=== PATIENT | female | born 1980 | race Two or more races ===

== ENCOUNTER 2021-02-12 13:25 | Emergency (ER) | payer BC ==
[~2021-02-12] VITALS: Ht 152.4 cm; Wt 61.8 kg
[2021-02-12] MEDS ORDERED: ONDANSETRON ODT 4 MG TAB.RAPDIS. PO ONE (16:15)
[2021-02-12 16:22] LABS: BILIRUBIN,URINE NEGATIVE (NEG); CLARITY,URINE CLEAR; COLOR,URINE YELLOW; NITRITE,URINE NEGATIVE (NEG); PH,URINE 6.5 (<5.0-8.0); PROTEIN,URINE NEGATIVE (NEG-TRACE); UROBILINOGEN,URINE 0.2 mg/dL (0.2 mg/dL)
[2021-02-12 16:36] LABS: BACTERIA,URINE 0 /HPF (0-FEW); RBC,URINE 0 /HPF (0-2)
--- NOTE | 2021-02-12 18:25 | RAD ---
Exam: Chest one view INDICATION: Shortness of breath TECHNIQUE: Frontal view of the chest Comparisons: None FINDINGS: The cardiomediastinal silhouette and pulmonary vessels are within normal limits. Patchy diffuse airspace disease. No pleural effusion. IMPRESSION: Patchy bilateral airspace disease may relate to pulmonary edema or atypical infectious process. Electronically signed by: Andrea Moreno MD (02/12/2021 6:22 PM) NIKA
[2021-02-12] MEDS ORDERED: AZIT250T6 PO (19:21)
[2021-02-12] MEDS ORDERED: ONDA4TAB12 PO (19:21)
--- NOTE | 2021-02-12 19:22 | PHYS DOC ---
Past Medical History Past Surgical History: No Surgical History Smoking Status: Never Smoker Alcohol Use: None General Adult EDM: Chief Complaint: COUGH HPI: HPI: Patient is a 40 year old female presents to the emergency department chief complaint of cough, body aches, nausea for the past week. Patient denies any chest pains, denies shortness of breath, denies vomiting or diarrhea, denies abdominal pains. Patient is unsure whether or not her cough is productive or not. Patient denies receiving the COVID-19 virus vaccination, patient reports she does not want to receive the vaccination. Patient reports her last menstrual cycle was on 06 January 2021, denies allergies to medications, states she takes no medications at home, does not have a primary care physician. Patient denies loss of taste or loss of smell, denies recent fever or chills. Patient denies any other physical complaints or physical concerns. Review of Systems: Review of Systems: 14 body systems of review of systems have been reviewed. See HPI for pertinent positives and negative responses, otherwise all other systems are negative, nonpertinent or noncontributory. Constitutional: Negative except as outlined in HPI above. Skin: Negative except as outlined in HPI above. Eyes: Negative except as outlined in HPI above. HENT: Negative except as outlined in HPI above. Respiratory: Negative except as outlined in HPI above. Cardiovascular: Negative except as outlined in HPI above. GI: Negative except as outlined in HPI above. : Negative except as outlined in HPI above. Musculoskeletal: Negative except as outlined in HPI above. Integument: Negative except as outlined in HPI above. Neurologic: Negative except as outlined in HPI above. Endocrine: Negative except as outlined in HPI above. Lymphatic: Negative except as outlined in HPI above. Psychiatric: Negative except as outlined in HPI above. Heart Score: C/O Chest Pain: No Risk Factors: Risk Factors: DM, Current or recent (<one month) smoker, HTN, HLP, family history of CAD, obesity. Risk Scores: Score 0 - 3: 2.5% MACE over next 6 weeks - Discharge Home Score 4 - 6: 20.3% MACE over next 6 weeks - Admit for Clinical Observation Score 7 - 10: 72.7% MACE over next 6 weeks - Early Invasive Strategies Current Medications: Current Medications Medications (Trade) Dose Ordered Sig/Kamryn Start Time Stop Time Status Last Admin Dose Admin Ondansetron HCl (Zofran Odt) 4 mg 1X ONCE 02/12/21 16:15 02/12/21 16:16 DC 02/12/21 16:31 4 MG Allergies: Allergies: Allergies Coded Allergies Type Severity Reaction Last Updated Verified No Known Drug Allergies 02/12/21 No Physical Exam: PE: Constitutional: Well developed, well nourished, no acute distress, non-toxic appearance. 40-year-old female in no apparent distress. Patient is [id number], speaks Cook Islander, used Giferent interpretation service, plastic products sales representative [id number] medical interpretation. HENT: Normocephalic, atraumatic. Oropharynx moist, pink, no infectious process appreciated, there is no lymphadenopathy of the head or neck. No drooling, no trismus, patient speaking in normal voice tones. Eyes: Conjunctiva normal, no discharge. Neck: Normal range of motion, no stridor. No meningismus signs, no nuchal rigidity. Cardiovascular: No cyanosis appreciated, distal cap refill less than 2 seconds. Heart sounds S1-S2 to auscultation, PMI to the right. Lungs & Thorax: Patient is in no respiratory distress, no audible adventitious lung sounds appreciated. Normal work of breathing, no adventitious lung sounds appreciated audibly, lung sounds clear to auscultate all lung alvarenga. Abdomen: Nontender, no abnormalities noted. Skin: Warm, dry, no erythema, no rash. Back: No tenderness, no deformities. Extremities: No tenderness, no cyanosis, no clubbing, ROM intact, no edema. Neurologic: Alert and oriented X 3, normal motor function, normal sensory function, no focal deficits noted. Psychologic: Affect normal, judgement normal, mood normal. Current Patient Data: Labs: Laboratory Tests Test 02/12/21 15:40 02/12/21 15:43 02/12/21 15:50 Urine Collection Type Unknown Urine Color Yellow Urine Clarity Clear Urine pH 6.5 (<5.0-8.0) Urine Specific K[place]um 1.010 (1.000-1.030) Urine Protein Negative mg/dL (NEG-TRACE) Urine Glucose (UA) Negative mg/dL (NEG) Urine Ketones (Stick) Negative mg/dL (NEG) Urine Blood Negative (NEG) Urine Nitrite Negative (NEG) Urine Bilirubin Negative (NEG) Urine Urobilinogen Dipstick 0.2 mg/dL (0.2 mg/dL) Urine Leukocyte Esterase Negative (NEG) Urine RBC 0 /HPF (0-2) Urine WBC 1-4 /HPF (0-4) Urine Squamous Epithelial Cells Mod /LPF Urine Bacteria 0 /HPF (0-FEW) POC Urine HCG, Qualitative Hcg negative (Negative) SARS-CoV-2 Antigen (Rapid) Positive (NEGATIVE) *A Vital Signs: Vital Signs Date Time Temp Pulse Resp B/P (MAP) Pulse Ox O2 Delivery O2 Flow Rate FiO2 02/12/21 18:18 56 18 145/88 (107) 99 Room Air 02/12/21 15:35 97.8 97.8 EKG: EKG: [] Radiology/Procedures: Radiology/Procedures: PATIENT: KANA MONK ACCOUNT: [id number] : 1980 LOCATION: ER AGE: 40 SEX: F EXAM STATUS: REG ER ORD. PHYSICIAN: RIK ANTON APRN REASON: Short of breath PROCEDURE: CHEST AP ONLY Exam: Chest one view INDICATION: Shortness of breath TECHNIQUE: Frontal view of the chest Comparisons: None FINDINGS: The cardiomediastinal silhouette and pulmonary vessels are within normal limits. Patchy diffuse airspace disease. No pleural effusion. IMPRESSION: Patchy bilateral airspace disease may relate to pulmonary edema or atypical infectious process. Electronically signed by: Andrea Moreno MD (02/12/2021 6:22 PM) [facility] Course & Med Decision Making: Course & Med Decision Making Pertinent Labs and Imaging studies reviewed. (See chart for details) 40-year-old female, vital signs reviewed, presents to the emergency department complaining of nausea, cough, body aches for the past week. Physical presentation and explanation of events concerning for the COVID-19 virus versus other viral syndrome. Will obtain rapid Covid testing, give sublingual Zofran for nausea, patient is nontoxic in appearance, in no respiratory distress, serum labs not indicated, will order urinalysis assay, urine test. Patient's urine was not infected, the patient is not , the patient's rapid COVID-19 test positive. Will order Decadron medication, start patient on Z-Jarvis to cover for atypical pneumonia, give patient COVID-19 virus instructions for self-isolation, the patient is not hypoxic and had room air sat between 98 and 99%, no time during her ER stay which she in any respiratory distress, patient has remained hemodynamically stable throughout her ER stay, the patient is afebrile. Will prescribe Zofran for ongoing intermittent nausea at home. D ischarge instructions reviewed with Cook Islander dobie man service. Discussed with the patient all findings and diagnostic testing as well as the need to follow-up with their primary care provider for further evaluation and treatment or return to the ED if any new or worsening symptoms. Strict return precautions were also discussed at length, the patient voiced understanding and agreement with the discharge planning. The patient was nontoxic in appearance, in no apparent distress, and hemodynamically stable at the time of disposition. Dragon Disclaimer: Dragon Disclaimer: This electronic medical record was generated, in whole or in part, using a voice recognition dictation system. Departure Departure Impression: Primary Impression: COVID-19 virus infection Additional Impression: Atypical pneumonia Disposition: 01 HOME / SELF CARE / HOMELESS Condition: GOOD Referrals: NO PCP (PCP) Patient Instructions: Pneumonia, Adult Additional Instructions: You were seen today in the emergency department for cough, nausea, general body aches for the past week. Your chest x-ray revealed an atypical pneumonia, this is most likely viral in nature however you are being prescribed a medication called azithromycin, please take as directed. I am also prescribing you sublingual orally dissolving Zofran for nausea, you may use this as you become nauseated up to 3 times a day. Please follow-up with your primary care concetta love this coming week for reevaluation of symptoms. I am attaching COVID-19 virus information to this packet, please review. Thank you for visiting our Emergency Department. It was a pleasure taking care of you today in the emergency department and we appreciate you trusting us with your care. If any additional problems come up don't hesitate to return to visit us. Please follow up with your primary care provider so they can plan additional care if needed and know about the problem that you had. If symptoms worsen come back to the Emergency Department. Any concerning symptoms that start such as chest pain, shortness of air, weakness or numbness on one side of the body, running high fevers or any other concerning symptoms return to the ER. EMERGENCY DEPARTMENT GENERAL DISCHARGE INSTRUCTIONS Thank you for coming to [facility] Emergency Department (ED) today and trusting us with you care. We trust that you had a positive experience in our Emergency Department. If you wish to speak to the department management, you may call the Director at [phone]. YOUR FOLLOW UP INSTRUCTIONS ARE FOLLOWS: 1. Do you have a private Doctor? If you do not have a private doctor, please ask for a resource list of physicians or clinics that may be able to assist you with follow up care. 2. The Emergency Physicain has interpreted your x-rays. The X-Ray specialist will also review them. If there is a change in the findings, you will be notified in 48 hours when at all possible. 3. A lab test or culture has been done, your results will be reviewed and you will be notified if you need a change in treatment. ADDITIONAL INSTRUCTIONS AND INFORMATION: 1. Your care today has been supervised by a physician who is specially trained in emergency care. Many problems require more than one evaluation for a complete diagnosis and treatment. We recommend that you schedule your follow up appointment as recommended to ensure complete treatment of you illness or injury. If you are unable to obtain follow up care and continue to have a problem, or if your condition worsens, we recommend that you return to the ED. 2. We are not able to safely determine your condition over the phone nor are we able to give sound medical advice over the phone. For these safety reasons, if you call for medical advice we will ask you to come to the ED for further evaluation. 3. If you have any questions regarding these discharge instructions please call the ED at [phone]. SAFETY INFORMATION: In the interest of safety, wellness, and injury prevention; we encourage you to wear your sealbelt, if you smoke; quite smoking, and we encourage family to use a protective helmet for bicycling and other sporting events that present an increased risk for head injury. IF YOUR SYMPTOMS WORSEN OR NEW SYMPTOMS DEVELOP, OR YOU HAVE CONCERNS ABOUT YOUR CONDITION; OR IF YOUR CONDITION WORSENS WHILE YOU ARE WAITING FOR YOUR FOLLOW UP APPOINTMENT; EITHER CONTACT YOUR PRIMARY CARE DOCTOR, THE PHYSICIAN WHOSE NAME AND NUMBER YOU WERE GIVEN, OR RETURN TO THE ED IMMEDIATELY. You have been tested for or diagnosed with COVID-19. It is an infection caused b y a new type of coronavirus. COVID-19 will cause cold-like or mild flu symptoms in most. It can cause more severe symptoms like problems breathing in some. There is no treatment for COVID-19. The body will clear the infection over time. Self-care will help to ease discomfort. Steps to Take: Self-Care Rest as needed. Healthy habits may help you feel better. Steps include: Choose healthy foods including fruits and vegetables. Drink water throughout the day. Get plenty of sleep each night. If you smoke, try to quit. It may ease breathing. Avoid alcohol. Keep Others Healthy The virus can spread to others. Droplets are released every time you sneeze or cough. The droplets can get into the mouth, nose, or eyes of people near you and lead to infection. To lower the chances of spreading COVID-19 to others: Stay at home until your doctor has said it is safe to leave. If you tested po sitive this will mean staying isolated until both of the following are true: At least 7 days have passed since the start of illness. You are free of fever for at least 72 hours without the use of medicine. During this time: - Avoid public areas, events, or transportation. Do not return to work or school until your doctor has said it is safe to do so. - Call ahead if you need to go to a medical center. Let them know you may have COVID-19. It will help them guide you where to go. They may also ask you to wear a facemask when you come to the office. - If you call for emergency medical services, let them know you may have COVID- 19. While at home: - Try to avoid close contact with others. Stay about 6 feet away. - If possible, spend most of your time in a separate room from others. - Use a face mask if you will be in close contact with others such as sharing a room or vehicle. - Have someone wipe down common surfaces in the home. Use household commercial real estate associate every day on areas like doorknobs, counters, or sinks. - Cough or sneeze into a tissue. Throw the tissue away right after use. If a tissue is not available, cough or sneeze into your elbow. - Wash your hands often. Wash them after sneezing or coughing. Use soap and water and wash for at least 20 seconds. Alcohol based hand well cleaner can be used if soap and water is not available. - Do not prepare food for others. Avoid sharing personal items like forks, spoons, or toothbrushes. - Avoid close contact with pets while you are sick. There is no evidence of the virus passing to pets. This is a safety step until more is known about this virus. Isolation can be frustrating. Social interaction can help. Keep in touch with friends and family through phone and tech options. You can still interact with others in your home, just keep a safe distance of about 6 feet. Follow-up: Your doctors office will check in with you to see if there are any changes in your health. You may be asked to keep track of symptoms to share with them. They will also let you know when you are clear to be in public again. Problems to Look Out For: Contact your doctor if your recovery is not going as you expect. Get emergency care if you have problems such as: - Trouble breathing - Nonstop chest pain or pressure - Changes in awareness, confusion, or problems waking - Lips or face have bluish color - Worsening of symptoms If you think you have an emergency, call for emergency medical services right away. As taken from [facility] Health Scripts Azithromycin (AZITHROMYCIN TABLET) 250 Mg Tablet 1 PKG PO UD for atypical pneumonia for 5 Days, #6 TAB 0 Refills 2 the first day followed by 1 for days 2-5 Prov: RIK ANTON APRN 02/12/21 Ondansetron (ONDANSETRON ODT) 4 Mg Tab.rapdis 1 TAB PO PRN Q6-8HRS for nausea, #16 TAB 0 Refills Prov: RIK ANTON APRN 02/12/21 RIK ANTON APRN Feb 12, 2021 19:22
[2021-02-12] MEDS ORDERED: DEXAMETHASONE SOD PHOS 20 MG/5 ML VIAL. IV ONE (19:30)
[2021-02-12] MEDS ORDERED: AZITHROMYCIN 250 MG TABLET. PO ONE (19:30)
[2021-02-12 19:48] VITALS: BP 149/97
== END 2021-02-12 20:13 | disposition home or self-care (01) ==
LOC: ER 13:25
DX: U07.1 COVID-19 (principal); J18.9 Pneumonia, unspecified organism
CPT/HCPCS: 71045; 81001; 81025; 87426; 96374; 99285; J1100

== ENCOUNTER 2021-02-15 14:46 | Emergency (ER) | payer BC ==
[~2021-02-15] VITALS: Ht 152.4 cm; Wt 63.0 kg
[~2021-02-15 14:46] MED LIST: AZIT250T6 PO; ONDA4TAB12 PO
[2021-02-15 14:55] VITALS: BP 161/107
--- NOTE | 2021-02-15 15:28 | PHYS DOC ---
Past Medical History Past Surgical History: No Surgical History Smoking Status: Never Smoker Alcohol Use: None General Adult EDM: Chief Complaint: CONSTIPATION HPI: HPI: Patient is a 40 year old female with no significant medical history presenting today complaining of constipation. Patient reports not having a bowel movement for the last 4 to 5 days. Complaining of abdominal discomfort. Denies any nausea vomiting. She states she tried [id number] stool softener with no relief. Patient was seen in the ED 4 days ago and diagnosed with COVID-19. Patient is East Timorese speaking and hardwood floor finisher line is used Review of Systems: Review of Systems: Constitutional: Denies fever or chills. [] Eyes: Denies change in visual acuity. [] HENT: Denies nasal congestion or sore throat. [] Respiratory: Denies cough or shortness of breath. [] Cardiovascular: Denies chest pain or edema. [] GI: Reports constipation with abdominal discomfort, denies nausea, vomiting, bloody stools or diarrhea. [] : Denies dysuria. [] Musculoskeletal: Denies back pain or joint pain. [] Integument: Denies rash. [] Neurologic: Denies headache, focal weakness or sensory changes. [] Psychiatric: Denies depression or anxiety. [] Heart Score: C/O Chest Pain: N/A Risk Factors: Risk Factors: DM, Current or recent (<one month) smoker, HTN, HLP, family history of CAD, obesity. Risk Scores: Score 0 - 3: 2.5% MACE over next 6 weeks - Discharge Home Score 4 - 6: 20.3% MACE over next 6 weeks - Admit for Clinical Observation Score 7 - 10: 72.7% MACE over next 6 weeks - Early Invasive Strategies Allergies: Allergies: Allergies Coded Allergies Type Severity Reaction Last Updated Verified No Known Drug Allergies 02/12/21 No Physical Exam: PE: Constitutional: Well developed, well nourished, no acute distress, non-toxic appearance. [] HENT: Normocephalic, atraumatic, bilateral external ears normal, oropharynx moist, no oral exudates, nose normal. [] Eyes: PERRLA, EOMI, conjunctiva normal, no discharge. [] Neck: Normal range of motion, no tenderness, supple, no stridor. [] Cardiovascular:Heart rate regular rhythm, no murmur [] Lungs & Thorax: Bilateral breath sounds clear to auscultation [] Abdomen: Bowel sounds normal, soft, no tenderness, no masses, no pulsatile masses. [] Skin: Warm, dry, no erythema, no rash. [] Back: No tenderness, no CVA tenderness. [] Extremities: No tenderness, no cyanosis, no clubbing, ROM intact, no edema. [] Neurologic: Alert and oriented X 3, normal motor function, normal sensory function, no focal deficits noted. [] Psychologic: Affect normal, judgement normal, mood normal. [] EKG: EKG: [] Radiology/Procedures: Radiology/Procedures: []PROCEDURE: ACUTE ABDOMEN SERIES INDICATION: Reason: constipation / Spl. Instructions: / History: COMPARISON: Chest x-ray February 12, 2021 IMPRESSION: 3 views of the chest and abdomen obtained. Slight decrease in the patchy airspace opacities bilaterally but some does persist at the lung bases. Again could be infectious in nature. Cardiac silhouette unremarkable. Moderate stool within the colon including right side as well as the rectosigmoid region. Grossly nonobstructive bowel gas pattern. Electronically signed by: Diana Quezada MD (02/15/2021 4:00 PM) [id number] DICTATED and SIGNED BY: DIANA QUEZADA MD DATE: 02/15/21 [id number] Course & Med Decision Making: Course & Med Decision Making Pertinent Labs and Imaging studies reviewed. (See chart for details) This is a 40-year-old female patient presented to the ED today with constipation for 4 days. Patient is Covid positive diagnosed 4 days ago. Acute abdominal series noted for constipation and patchy infiltrates bilaterally. Patient was given mag citrate, Dulcolax and bottle of enema provided in the ED. Provider remedies for managing constipation. Follow-up with PCP. Encouraged to continue to quarantine herself for Covid. Perlita Disclaimer: Perlita Disclaimer: This electronic medical record was generated, in whole or in part, using a voice recognition dictation system. Departure Departure Impression: Primary Impression: Constipation Qualified Codes: K59.00 - Constipation, unspecified Disposition: HOME / SELF CARE / HOMELESS Condition: STABLE Referrals: NO PCP (PCP) Patient Instructions: Constipation, Adult Additional Instructions: You were evaluated in the emergency room for constipation. Please increase your dietary fiber intake and generalized water intake. Please use and take the prescribed medications as ordered. Please continue to quarantine yourself for Covid. Scripts Polyethylene Glycol 3350 (MIRALAX) 119 Gm Powder 17 GM PO DAILY for constipation, #527 GM 0 Refills dissolve in water Prov: ABE DOMINGUEZ APRN 02/15/21 Magnesium Citrate (MAGNESIUM CITRATE) 296 Ml Solution 296 ML PO ONCE, #296 ML 2 Refills Prov: ABE DOMINGUEZ APRN 02/15/21 ABE DOMINGUEZ APRN Feb 15, 2021 15:28
--- NOTE | 2021-02-15 16:03 | RAD ---
INDICATION: Reason: constipation / Spl. Instructions: / History: COMPARISON: Chest x-ray February 12, 2021 IMPRESSION: 3 views of the chest and abdomen obtained. Slight decrease in the patchy airspace opacities bilaterally but some does persist at the lung bases. Again could be infectious in nature. Cardiac silhouette unremarkable. Moderate stool within the colon including right side as well as the rectosigmoid region. Grossly nono bstructive bowel gas pattern. Electronically signed by: Wojciech Quezada MD (02/15/2021 4:00 PM) [id number]
[2021-02-15] MEDS ORDERED: MAGNESIUM CITRATE 296 ML SOLUTION. PO ONE (16:15)
[2021-02-15] MEDS ORDERED: BISACODYL 5 MG TABLET.DR. PO ONE (16:15)
[2021-02-15] MEDS ORDERED: ONDANSETRON ODT 4 MG TAB.RAPDIS. PO ONE (16:15)
[2021-02-15] MEDS ORDERED: POLY119P4 PO (16:16)
[2021-02-15] MEDS ORDERED: MAGN296S68 PO (16:16)
== END 2021-02-15 17:09 | disposition home or self-care (01) ==
LOC: ER 14:46
DX: K59.00 Constipation, unspecified (principal)
CPT/HCPCS: 74022; 81025; 99284